=== PATIENT | female | born 1950 | race Caucasian/White ===

== ENCOUNTER 2019-05-18 20:15 | Observation (INO) | payer MEDICARE ==
--- NOTE | 2019-05-18 21:01 | ED.PDOC ---
History of Present Illness - General Chief Complaint: Abdominal Pain Stated Complaint: Right sided ABD pain Time Seen by Provider: 05/18/19 20:45 Source: patient Exam Limitations: no limitations - History of Present Illness Initial Comments: Patient presents with abdominal pain for one week. It is generalized with a focus in the umbilical area. Constant but intermittent in intensity. Worse with movement, better with rest. "It just hurts" is how she describes the quality. No particular timing nor context. Denies previous episodes. S/P gastric bypass "years ago". Denies cardiac history. Regularly take docusate and increased her dose when this started. She had two bowel movements today but the pain did not resolve. No N/V. Had a normal meal this evening. No other complaints. Timing/Duration: 1 week Severity: moderate Improving Factors: rest Worsening Factors: movement Associated Symptoms: other - as in HPI Allergies/Adverse Reactions: Allergies Morphine Allergy (Unknown, Verified 05/18/19 21:05) Review of Systems - Review of Systems Constitutional: States: no symptoms reported EENTM: States: no symptoms reported Respiratory: States: no symptoms reported Cardiology: States: no symptoms reported Gastrointestinal/Abdominal: States: see HPI Genitourinary: States: no symptoms reported Musculoskeletal: States: no symptoms reported Skin: States: no symptoms reported Neurological: States: no symptoms reported Endocrine: States: no symptoms reported Hematologic/Lymphatic: States: no symptoms reported Past Medical History (General) - Patient Medical History Hx Diabetes: No Hx Gastroesophageal Reflux: Yes Surgical History: cholecystectomy, gastric bypass, tonsillectomy, Hysterectomy - Vaccination History Hx Tetanus, Diphtheria Vaccination: No Hx Influenza Vaccination: Yes Hx Pneumococcal Vaccination: Yes Immunizations Up to Date: No - Social History Hx Tobacco Use: Yes Hx Alcohol Use: Yes Hx Substance Use: No Hx Depression: No Hx Physical Abuse: No Hx Emotional Abuse: No Hx Suspected Abuse: No - Female History Patient is a Female of Child Bearing Age (10 -59 yrs old): No - Triage Comment ED Triage Comment: Patient rated pain at 8/10 and unrelieved by positioning. Family Medical History - Family History Mother Family History: Unknown Physical Exam - Physical Exam General Appearance: Alert Eye Exam: bilateral normal Ears, Nose, Throat: normal ENT inspection Neck: non-tender, full range of motion, supple Respiratory: lungs clear, no respiratory distress Cardiovascular/Chest: normal peripheral pulses, regular rate, rhythm, other - trace edema bilateral LE Gastrointestinal/Abdominal: normal bowel sounds, tenderness - TTP diffusily, moderate guarding, negative Rovsing's sign. Moderate distension. No tympany. Extremity: normal range of motion, non-tender, normal inspection Neurologic: no motor/sensory deficits, alert, normal mood/affect, oriented x 3 Skin Exam: normal color Lymphatic: no adenopathy Progress - Progress Progress: 05/19/19 00:13 Laboratory Tests 05/18/19 05/18/19 05/18/19 20:57 20:57 21:30 WBC 8.4 RBC 3.99 L Hgb 13.1 Hct 39.1 MCV 97.9 MCH 32.9 H MCHC 33.6 RDW 13.5 Plt Count 255 MPV 7.4 Absolute Neuts (auto) 5.90 Absolute Lymphs (auto) 1.60 Absolute Monos (auto) 0.80 Absolute Eos (auto) 0.10 Absolute Basos (auto) 0.00 Neutrophils % 70.4 Lymphocytes % 18.6 L Monocytes % 9.1 H Eosinophils % 1.4 Basophils % 0.5 Sodium 142 Potassium 2.7 L Chloride 108 Carbon Dioxide 24 Anion Gap 12.7 BUN 12 Creatinine 0.72 BUN/Creatinine Ratio 16.7 Random Glucose 87 Serum Osmolality 282.2 Calcium 8.9 Total Bilirubin 0.5 AST 18 ALT 13 Alkaline Phosphatase 76 Creatine Kinase 30 CK-MB (CK-2) 0.6 CK-MB (CK-2) % Not Reportable Troponin I < 0.02 B-Natriuretic Peptide 78.5 Serum Total Protein 5.8 L Albumin 3.3 Globulin 2.5 Albumin/Globulin Ratio 1.3 Lipase 25 Urine Color Yellow Urine Appearance Sl cloudy Urine pH 5.5 Ur Specific [place] <= 1.005 Urine Protein Negative Urine Glucose (UA) Negative Urine Ketones Negative Urine Blood Small H Urine Nitrite Positive H Urine Bilirubin Negative Urine Urobilinogen 0.2 Ur Leukocyte Esterase Small H Urine RBC 1-3 Urine WBC 10-20 H Ur Epithelial Cells 0-1 Urine Bacteria 2+ H 05/19/19 00:02 WBC RBC Hgb Hct MCV MCH MCHC RDW Plt Count MPV Absolute Neuts (auto) Absolute Lymphs (auto) Absolute Monos (auto) Absolute Eos (auto) Absolute Basos (auto) Neutrophils % Lymphocytes % Monocytes % Eosinophils % Basophils % Sodium Potassium 3.3 L D Chloride Carbon Dioxide Anion Gap BUN Creatinine BUN/Creatinine Ratio Random Glucose Serum Osmolality Calcium Total Bilirubin AST ALT Alkaline Phosphatase Creatine Kinase CK-MB (CK-2) CK-MB (CK-2) % Troponin I B-Natriuretic Peptide Serum Total Protein Albumin Globulin Albumin/Globulin Ratio Lipase Urine Color Urine Appearance Urine pH Ur Specific [place] Urine Protein Urine Glucose (UA) Urine Ketones Urine Blood Urine Nitrite Urine Bilirubin Urine Urobilinogen Ur Leukocyte Esterase Urine RBC Urine WBC Ur Epithelial Cells Urine Bacteria CT ab/pelvis showed dilated loops of bowel near J/J anastamosis. I spoke with Dr. Medley with surgery at [facility] who spoke with Dr. Escobar. It was mutually decided to treat the patient here as an inpatient with fluids and stool softeners and if she did not improve, she could be transferred to Dr. Escobar for possible surgery. Her potassium was 2.7 and she received potassium chloride 40 meq po x one in the E.D. Her UA showed UTI and she was given Bactrim DS x one in the E.D. Admitted for observation to [facility]. Departure - Departure Clinical Impression: Abdominal pain, Hypokalemia, UTI (urinary tract infection) Disposition: Admit Patient Condition: Fair Departure Forms: ED Discharge - Pt. Copy, Patient Portal Self Enrollment Instructions: DI for Abdominal Pain-Adult Diet: other - NPO Activity: other - as per hospitalist
[2019-05-18] MEDS ORDERED: POTASSIUM CHLORIDE 20 MEQ TAB PO ONE (21:47)
--- NOTE | 2019-05-18 22:50 | CT ---
CLINICAL HISTORY: abdominal pain COMPARISON: None. TECHNIQUE: CT ABDOMEN PELVIS WITHOUT IV CONTRAST on 05/18/2019 9:52 PM CDT This exam was performed according to our departmental dose-optimization program, which includes automated exposure control, adjustment of the mA and/or kV according to patient size and/or use of iterative reconstruction technique. FINDINGS: Lower lungs are clear. Abdomen: The liver is normal in appearance. There is no biliary dilatation. Cholecystectomy was performed. Gastric bypass was performed. The pancreas and spleen are normal in appearance. The adrenal glands and kidneys are unremarkable. Abdominal aorta is normal in course and caliber without aneurysm. There is no free air. There is no retroperitoneal adenopathy. Pelvis: There is thickening of multiple bowel loops involved within the distal JJ anastomosis with mild surrounding inflammation. Some of the bowel loops are dilated, measuring up to 6 cm. Urinary bladder is unremarkable. There is no free fluid. Hysterectomy was performed. Appendix is not well seen. Skeleton: There are no acute osseous findings. No suspicious bony lesions. IMPRESSION: Abnormal thickening and dilatation of several bowel loops involved with distal JJ anastomosis. No overt bowel obstruction at this time. Electronically signed by: Kal Ruano MD 05/18/2019 10:48 PM CDT
[2019-05-19] MEDS ORDERED: SULFA/TRIMETH 800/160 (DS) TAB 1 EA TAB PO ONE (00:04)
--- NOTE | 2019-05-19 00:43 | HP ---
SUPERVISING PHYSICIAN: Seth David M.D. CHIEF COMPLAINT: Epigastric abdominal pain. HISTORY OF PRESENT ILLNESS: This is a 68 year-old female patient who is in [facility] family from [place]. She has had about a week of epigastric abdominal pain that extends down to the umbilical area. It has been constant over the last few days but is worse with movement, better with rest. She had a history of gastric bypass surgery approximately 17 years ago. She has no significant medical history other than she has gastroesophageal reflux disease. She does have some constipation. She takes Docusate sodium routinely as well as Dulcolax when needed. Over the last few days she thought that she was constipated so she has taken several doses of Dulcolax. She has had good bowel movements. She is passing gas but she continues to have pain. In the Emergency Room her vital signs were temperature 97.6, heart rate 90, blood pressure 125/104, respiratory rate 18, O2 sat 96%. Lab was done. WBCs were 8.4 with hemoglobin 13.1, hematocrit 39.1. Sodium 142, potassium 2.7, chloride 108, carbon dioxide 24, BUN 12, creatinine 0.72. She was given some IV fluids as well as some oral potassium. Urinalysis was positive for a urinary tract infection with a small amount of urine blood, positive urine nitrites, small amount of urine leukocyte esterase, 10 to 20 urine WBCs and 2+ urine bacteria. She was also given some Bactrim in the E. R. Potassium was redone after getting her oral potassium and it was 3.3. CT of the abdomen and pelvis was done and it showed a normal thickening and dilation of the several bowel loops involved with distal JJ anastomosis. No overt bowel obstruction at this time. Due to her history of gastric bypass, Dr. Esquivel called Dr. Merrill Vilchis, general surgeon in [place], to ask his recommendation on treatment of a patient with a history of gastric bypass with abdominal pain. He called Dr. Neymar Hilton who is the surgeon that has experience in gastric bypass surgery and they recommended that the patient be treated as a small bowel obstruction to be put on bowel rest and to see if her symptoms resolve. The patient was admitted to the hospital in stable condition. PAST MEDICAL HISTORY: 1. Gastroesophageal reflux disease. 2. Constipation. PAST SURGICAL HISTORY: 1. Cholecystectomy. 2. Gastric bypass surgery. 3. Tonsillectomy. 4. Hysterectomy. OUTPATIENT MEDICATIONS: 1. Zovirax. 2. Alprazolam. 3. Docusate sodium. 4. Ferrous sulfate. 5. Robaxin. 6. Omeprazole. 7. Cetirizine. 8. Diclofenac topical. 9. Ipratropium bromide nasal. 10. Singulair. 11. Oxybutynin. 12. Ropinirole. 13. Trazodone. ALLERGIES: MORPHINE. SOCIAL HISTORY: She lives in [place]. She is here in [facility]. She is . She has a previous history of smoking but she quit about 30 years ago. She drinks alcohol on a social basis only and denies any illicit drug use. REVIEW OF SYSTEMS: GENERAL: Negative for fatigue, fever or weight changes. HEENT: Negative for sinus symptoms, ear pain, vision changes or sore throat. RESPIRATORY: Negative for coughing, wheezing or shortness of breath. CARDIAC: Negative for palpitations, tachycardia or chest pain. GASTROINTESTINAL: As per History of Present Illness. GENITOURINARY: Negative for hematuria, dysuria or polyuria. MUSCULOSKELETAL: Negative for arthralgias or myalgias. SKIN: Negative for lesions or rashes. NEUROLOGIC: Negative for headaches, seizures or weakness. PHYSICAL EXAMINATION: VITAL SIGNS: Temperature 98.1, heart rate 52, blood pressure 122/77, respiratory rate 18, O2 sat 96% on room air. GENERAL: This is a 68 year-old female patient who is lying in her hospital bed. She is in no acute distress. HEENT: Normocephalic and atraumatic. Pupils are equal and reactive. Oropharynx is clear. NECK: Supple without mass. RESPIRATORY: Essentially clear to auscultation bilaterally. CHEST: There is equal rise and fall of the chest with inspiration and expiration. CARDIOVASCULAR: Regular rate and rhythm. GASTROINTESTINAL: Abdomen is soft. It is slightly distended. It is moderately tender to the epigastric area. There is no rebound tenderness or guarding. EXTREMITIES: No clubbing, cyanosis or edema. NEUROLOGIC: She is awake, alert and oriented times three. LABORATORY: Followup labs after admission show a WBC of 7.7 with hemoglobin 11.8, chronic 35.7. Sodium 141, potassium 3.4, chloride 109, carbon dioxide 23, glucose 110, calcium 8.3, magnesium 1.8. Urine culture is pending. Followup abdominal x-ray shows a few prominent gas-filled loops of bowel in the left upper quadrant will is a nonspecific finding with no air-fluid level identified. Abdominal ultrasound shows: 1. Prior cholecystectomy, bile duct dilated. No intrahepatic biliary dilatation. No ascites. Liver unremarkable. 2. Pancreas and spleen are negative. Normal caliber of the abdominal aorta and IVC. 3. Left kidney is unremarkable. Thinner cortex on the right kidney is most likely age related. All other labs and films have been reviewed via the EMR. ASSESSMENT: 1. Abdominal pain with concerns for developing small bowel obstruction, especially given her history of gastric bypass surgery. 2. Urinary tract infection. 3. Hypokalemia. 4. Gastroesophageal reflux disease. PLAN: The patient has been placed in observation in the hospital. She was placed on bowel rest except for her medications and placed her on IV fluids. Her diet was slowly advanced and at this point she is tolerating her clear liquids without any difficulty. Her pain has diminished greatly. At this point she has some slight stomach spasms and for that I have given her some Bentyl as needed. She continues to have bowel movements and passing gas, but I have given her some Dulcolax to assist with that. Hopefully she will have another bowel movement. In the morning I will advance her diet to a full liquid as long as she tolerates her diet and her pain does not increase. I have reviewed all of her labs and films with the patient and her family. Hopefully she can be discharged in the morning with close followup with her primary care physician in [place]. Will continue to monitor closely and follow as needed. #[id number] [facility]
[2019-05-19] MEDS ORDERED: DICLOFENAC SODIUM 1% TD PRN (01:30)
[2019-05-19] MEDS ORDERED: IPRATROPIUM BROM 0.03% NASAL 30 ML BTTL BNAS PRN (01:30)
[2019-05-19] MEDS ORDERED: ONDANSETRON INJ 4 MG/2 ML VIAL IV PRN (01:36)
[2019-05-19] MEDS ORDERED: SODIUM CHLORIDE 0.9% (FLUSH) 10 ML SYG IV PRN (01:36)
[2019-05-19] MEDS ORDERED: ALBUTEROL SULFATE 2.5 MG/3 ML VIAL NEB PRN (01:36)
[2019-05-19] MEDS ORDERED: ACETAMINOPHEN 325 MG TAB PO PRN (01:36)
[2019-05-19] MEDS ORDERED: OXYBUTYNIN CL 5 MG TAB ONE (01:57)
[2019-05-19] MEDS ORDERED: IV SET AND CAP CHANGE INJ INJ SCH (02:00)
[2019-05-19] MEDS: KCL 20MEQ/D5 1/2NS 1,000 ML IVS PRN ×3 (02:02→19:54)
[2019-05-19] MEDS: OXYBUTYNIN CL 5 MG TAB PO SCH ×2 (02:02→20:13)
[2019-05-19] MEDS: traZODone HCL 50 MG TAB PO SCH ×3 (02:04→20:13)
[2019-05-19] MEDS: ALBUTEROL SULFATE 2.5 MG/3 ML VIAL NEB SCH ×2 (08:17→19:25)
--- NOTE | 2019-05-19 11:07 | RAD ---
PROVIDED CLINICAL HISTORY/REASON FOR EXAM: abd pain Findings: Number of images: 2 Location: abdomen There are a few prominent loops in the left upper quadrant. No air-fluid level. No suspicious calcification. No acute osseous abnormalities. Soft tissues are unremarkable. Small stool volume. Visualized lung bases are unremarkable. No free air beneath the diaphragm. IMPRESSION: There are a few prominent gas-filled loops of bowel in the left upper quadrant, which is nonspecific finding. No air-fluid level identified. Electronically signed by: Ranjan Acharya MD 05/19/2019 11:06 AM CDT
[2019-05-19] MEDS ORDERED: SODIUM CHL 0.9% 50ML MIN-BAG+ 50 ML IVPB ONE (11:55)
[2019-05-19] MEDS ORDERED: cefTRIAXone SODIUM 1 GM VIAL ONE (11:56)
[2019-05-19] MEDS: cefTRIAXone SODIUM 1 GM in SODIUM CHL 0.9% 50ML MIN-BAG+ 50 ML IVPB SCH (12:11)
[2019-05-19] MEDS: MONTELUKAST 10 MG TAB PO SCH (12:12)
[2019-05-19] MEDS: CETIRIZINE HCL 10 MG TAB PO SCH (12:12)
[2019-05-19] MEDS: SODIUM CHLORIDE 0.9% (FLUSH) 10 ML SYG IV SCH ×2 (12:12→20:13)
--- NOTE | 2019-05-19 15:44 | US ---
EXAM DESCRIPTION: Abdomen,Complete: Ultrasound. CLINICAL HISTORY: abd pain COMPARISON: None Available. TECHNIQUE: Transabdominal scannin-dimensional and Doppler modes. FINDINGS: Gallbladder: Prior cholecystectomy. No fluid in the gallbladder fossa. Nontender with transducer pressure. Common bile duct: Dilated 10.3 mm. Liver: Long axis right lobe 13 cm. Normal echogenicity. Normal caliber and flow in the portal vein. Normal caliber of intrahepatic ducts. Smooth capsule with no ascites. Pancreas: Included segments unremarkable with duct not seen.. Abdominal aorta: Normal caliber proximal segment and distal at the bifurcation. Mid segments obscured by intestinal gas. IVC: visualized; normal caliber. Spleen normal echogenicity; long axis measurement is 10.1 cm. Right kidney: 9.7 cm long axis with slightly echogenic cortex and thickness 12 mm. No echogenic stones, no hydronephrosis, no perirenal fluid. Left kidney: 11.6 cm long axis with normal cortical thickness and echogenicity. No echogenic stones, no hydronephrosis, no perinephric fluid. IMPRESSION: 1. Prior cholecystectomy. Common bile duct dilated. No intrahepatic biliary dilatation. No ascites. Liver unremarkable. 2. Pancreas and spleen are negative. Normal caliber of the abdominal aorta and IVC. 3. Left kidney is unremarkable. Thinner cortex on the right kidney is most likely age-related. Electronically signed by: Adithya Weathers MD 05/19/2019 3:42 PM CDT
[2019-05-19] MEDS: DICYCLOMINE HCL 20 MG TAB PO PRN (17:36)
[2019-05-19] MEDS ORDERED: GABAPENTIN 100 MG CAP PO SCH (21:00)
[2019-05-20] MEDS: DICYCLOMINE HCL 20 MG TAB PO PRN (06:05)
--- NOTE | 2019-05-20 07:28 | RAD ---
EXAM DESCRIPTION: Abdomen Flat Upright CLINICAL HISTORY: 68 years Female, abd pain; ?sbo COMPARISON: May 19, 2019 FINDINGS: Previously described slightly prominent left upper quadrant small bowel loops are the same or minimally improved from previous study and remain nonspecific. A pattern of obstruction or ileus is not apparent. Scoliosis degenerative changes and prior surgery with fixation of the lower lumbar spine from L3 to L5 again noted. Colon is partially stool-filled and nonspecific. Surgical changes in the left upper quadrant and right upper quadrant are noted. IMPRESSION: Persistent slightly prominent small bowel loops left upper quadrant, nonspecific and if anything slightly improved from previous day's study Electronically signed by: Bryce Cotter MD 05/20/2019 7:27 AM CDT
[2019-05-20] MEDS ORDERED: BISACODYL TAB 5 MG TAB PO ONE ×2 (08:00→17:10)
[2019-05-20] MEDS: MONTELUKAST 10 MG TAB PO SCH (08:49)
[2019-05-20] MEDS: CETIRIZINE HCL 10 MG TAB PO SCH (08:49)
[2019-05-20] MEDS: SODIUM CHLORIDE 0.9% (FLUSH) 10 ML SYG IV SCH (08:50)
[2019-05-20] MEDS: ALBUTEROL SULFATE 2.5 MG/3 ML VIAL NEB SCH (09:38)
[2019-05-20] MEDS ORDERED: DICYCLOMINE HCL INJ 20 MG/2 ML AMP IM ONE ×2 (11:20→11:36)
[2019-05-20] MEDS: cefTRIAXone SODIUM 1 GM in SODIUM CHL 0.9% 50ML MIN-BAG+ 50 ML IVPB SCH (11:28)
[2019-05-20] MEDS: traZODone HCL 50 MG TAB PO SCH (11:36)
[2019-05-20 11:46] VITALS: BP 139/71; TEMP 98; O2SAT 97
[2019-05-20] MEDS ORDERED: traZODone HCL 50 MG TAB PO SCH (21:00)
--- NOTE | 2019-06-04 11:29 | DS ---
SUPERVISING PHYSICIAN: Vince David MD ADMISSION DIAGNOSIS: 1. Abdominal pain with concerns for developing small bowel obstruction, especially given her history of gastric bypass surgery. 2. Urinary tract infection. 3. Hypokalemia. 4. Gastroesophageal reflux disease. DISCHARGE DIAGNOSIS: 1. Abdominal pain without any evidence of small bowel obstruction with the patient having a history of gastric bypass and responding to conservative treatment measures with Bentyl, requiring followup at discharge. 2. Urinary tract infection with final culture results showing Escherichia coli that was sensitive to Bactrim with the patient being discharged on Bactrim. 3. Hypokalemia with potassium levels normalized prior to discharge without any fluids. 4. Gastroesophageal reflux disease, stable REASON FOR HOSPITALIZATION: This is a 68 year-old female patient who is in [place] visiting family from [place]. She has had about a week of epigastric abdominal pain that extends down to the umbilical area. It has been constant over the last few days but is worse with movement, better with rest. She had a history of gastric bypass surgery approximately 17 years ago. She has no significant medical history other than she has gastroesophageal reflux disease. She does have some constipation. She takes docusate sodium routinely as well as Dulcolax when needed. Over the last few days she thought that she was constipated so she has taken several doses of Dulcolax. She has had good bowel movements. She is passing gas but she continues to have pain. In the Emergency Room her vital signs were temperature 97.6, heart rate 90, blood pressure 125/104, respiratory rate 18, O2 sat 96%. Lab was done. WBCs were 8.4 with hemoglobin 13.1, hematocrit 39.1. Sodium 142, potassium 2.7, chloride 108, carbon dioxide 24, BUN 12, creatinine 0.72. She was given some IV fluids as well as some oral potassium. Urinalysis was positive for a urinary tract infection with a small amount of urine blood, positive urine nitrites, small amount of urine leukocyte esterase, 10 to 20 urine WBCs and 2+ urine bacteria. She was also given some Bactrim in the E. R. Potassium was redone after getting her oral potassium and it was 3.3. CT of the abdomen and pelvis was done and it showed a normal thickening and dilation of the several bowel loops involved with distal JJ anastomosis. No overt bowel obstruction at this time. Due to her history of gastric bypass, Dr. Esquivel called Dr. Merrill Vilchis, general surgeon in [place], to ask his recommendation on treatment of a patient with a history of gastric bypass with abdominal pain. He called Dr. Neymar Hilton who is the surgeon that has experience in gastric bypass surgery and they recommended that the patient be treated as a small bowel obstruction to be put on bowel rest and to see if her symptoms resolve. The patient was admitted to the hospital in stable condition. LABORATORY: Admission CBC showed white count 8,400, at discharge 6,300. Hemoglobin and hematocrit were both stable and at discharge were 12.5 and 37.0. Differential was without a left shift. Platelet count 260,000 at discharge. Chemistries showed a hypokalemia initially on admission with a 2.7 potassium. Other electrolytes were within normal limits. Liver functions were all within normal limits. Troponin was less than 0.02. Lipase was normal as well on admission. After replacement and IV fluids, at discharge, electrolytes were within normal limits. BUN was 0.54 and magnesium 1.8. Urinalysis did show a significant urinary tract infection with a small amount of blood and positive nitrites, small leukocyte esterase with microscopic revealing 10 to 20 WBCs, 1 to 3 RBCs, 2+ bacteria with final culture results showing Escherichia coli that was sensitive to Bactrim. RADIOLOGY: In the Emergency Room, she had an abdominopelvic CT without IV contrast and per radiologic interpretation there was noted abnormal thickening and dilation of several small bowel loops involved with a distal JJ anastomosis, no overt bowel obstruction at that time. She then had abdominal x-rays during hospitalization. The morning after admission, abdominal x-ray per radiologic interpretation showed a few prominent gas-filled loops of bowel in the left upper quadrant with nonspecific findings, no air-fluid levels identified. On day of discharge, final abdominal x-ray per radiologic interpretation showed persistent slightly prominent small bowel loops in the left upper quadrant, nonspecific. She had an abdominal ultrasound and per radiologic interpretation showed prior cholecystectomy. The common bile duct was dilated, but no intrahepatic biliary dilation or ascites. Liver was unremarkable. Pancreas and spleen were both negative. No caliber of the abdominal aorta and inferior vena cava. Left kidney was unremarkable. There was note of thinner cortex on the right kidney, most likely age related. Please see those reports for details. EKG: Normal sinus rhythm with no ST or T-wave changes to indicate ischemia or injury pattern. HOSPITAL COURSE: Ms. Todd was admitted for questionable small bowel obstruction. She was treated conservatively with Bentyl, bowel rest and IV fluids to correct the hypokalemia. She was also noted to have a urinary tract infection and was started on antibiotic coverage with Bactrim at discharge and treated as an inpatient with Rocephin. Clinically, she showed good resolution of her symptoms and was felt clinically stable enough to be discharged to continue with outpatient management and followup with her primary care provider. PLAN: Ms. Todd was discharged on 05/20/19 with instructions to followup with her primary care provider. She was to resume her home medications as prior to hospitalization. She was told to the hospital or Emergency Room if she had any worsening or concerning symptoms. NEW PRESCRIPTIONS AT DISCHARGE: 1. Bentyl 20 mg 4 times daily as needed, #30. 2. Bactrim DS 1 tablet twice daily, #6, no refills. All other medications prior to hospitalization were resumed includin. Trazodone 50 mg at bedtime. 2. Colace 100 mg b.i.d. 3. Topical diclofenac daily. 4. Zyrtec Allergy 10 mg daily. 5. Lorazepam 0.25 mg as needed. 6. Atrovent nasal spray 1 spray both nostrils as needed. 7. Ferrous sulfate 325 mg daily. 8. Oxybutynin chloride 5 mg at bedtime. 9. Omeprazole 40 mg at bedtime. 10. Singulair 10 mg daily. 11. Methocarbamol 500 mg daily as needed. 12. Ropinirole 1 mg at bedtime. DISPOSITION: The patient is discharged home. CONDITION AT DISCHARGE: Stable and improved. #[id number] [facility]
== END 2019-05-20 12:11 | disposition home or self-care (01) ==
LOC: ER 20:15 → INTOOBSV 05-19 00:43 → OBSVTOIN 05-19 00:43 → MS 05-19 00:43
PROVIDERS: ADMIT Nurse Practitioner Acute Care; ATTEND Nurse Practitioner Acute Care
DX: E87.6 Hypokalemia (principal); N39.0 Urinary tract infection, site not specified; B96.89 Other specified bacterial agents as the cause of diseases classified elsewhere; R10.13 Epigastric pain; K21.9 Gastro-esophageal reflux disease without esophagitis; Z79.899 Other long term (current) drug therapy; Z88.6 Allergy status to analgesic agent; Z98.84 Bariatric surgery status; Z90.49 Acquired absence of other specified parts of digestive tract; Z90.710 Acquired absence of both cervix and uterus; Z87.891 Personal history of nicotine dependence
CPT/HCPCS: 96366; 96365; 96375; 96372; J0696; J0500; J7050; 80048; 82553; 80053 ×2; 87086; 36415 ×3; 87077; 87186; 81001; 85025 ×3; 82550; 83690; 83735; 84132; 84484; 83880; 74019 ×2; 74176; 76700; 94640; 94760 ×3; 99285; 93005; G0378 ×2